=== PATIENT | female | born 1965 | race Caucasian/White ===

== ENCOUNTER 2016-06-29 13:07 | Emergency (ER) | payer OTHER ==
[~2016-06-29] VITALS: Ht 172.7 cm; Wt 95.0 kg
[~2016-06-29 13:07] MED LIST: BACT800T5 PO; CEPH500 PO; EC-N500T7 PO; HYDR-3533 PO; NAPR500 PO
[2016-06-29 13:13] VITALS: BP 110/81; PULSE 73; RESP 16; TEMP 97.8; O2SAT 95
[2016-06-29] MEDS ORDERED: NAPR500 PO (13:57)
[2016-06-29] MEDS ORDERED: BACT800T5 PO (13:57)
[2016-06-29] MEDS ORDERED: ZOFR4TAB PO (13:57)
[2016-06-29] MEDS ORDERED: FLUO1TAB3 PO (13:57)
[2016-06-29] MEDS ORDERED: LIDOCAINE 1%/EPINEPHrine 1:100,000 SOLN 20 ML VIAL INFIL ONE (14:00)
[2016-06-29] MEDS ORDERED: SODIUM CHLORIDE 0.9% FLUSH 5 ML FLUSH IVF PRN (14:00)
[2016-06-29] MEDS ORDERED: SODIUM CHLOR 0.9% 1000 ML INJ 1,000 ML IV SCH (14:00)
[2016-06-29] MEDS ORDERED: ONDANSETRON HCL 4 MG/2 ML VIAL IVP ONE (14:00)
--- NOTE | 2016-06-29 14:08 | PD ---
HPI Chief Complaint: Cold / Flu Symptoms Time Seen by Provider: 14:04 Travel History International Travel<30 days: No Contact w/Intl Traveler<30days: No Traveled to known affect area: No History of Present Illness HPI Patient is a 50-year-old female presenting with chief complaint of cough. She states since June 22 she's had what she feels an upper respiratory infection cough, body aches, and nasal congestion. She felt like she was improving but over the last several days she has had worsening dyspnea without wheezing. She reports severe fatigue that is worse with activity. She has bilateral lower anterior rib pain with cough but denies pain at rest, exertional pain or pain with deep inspiration. She denies abdominal pain but has had nausea without vomiting. She reports reduced oral intake over the last several days. She denies diarrhea or dysuria or constipation. She denies fever and chills. She states over the last several days she has developed skin lesions on her left jaw and right armpit. 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 One on the face has been draining spontaneously and has improvement of the last several days. She denies history of diabetes or immune compromise states. She is a former smoker. PFSH Past Medical History Arthritis: Yes Depression: Yes Cancer: No Cardiovascular Problems: No Diabetes: No Endocrine: No Gastrointestinal Disorders: Yes (REFLUX) Genitourinary: No Hepatitis: No Hiatal Hernia: No Hypertension: No Immune Disorder: No Medical other: No Musculoskeletal: Yes (ARTHRITIS, NECK AND BACK) Neurologic: No Psychiatric: No Reproductive: No Respiratory: No Immunizations Current: Yes Thyroid Disease: No ?: Not LMP: MENOPAUSAL Menopausal: Yes : 3 Para: 1 Miscarriage: 2 Past Surgical History Cholecystectomy: Yes Genitourinary Surgery: Yes (SRAVAN) Joint Replacement: No Other Surgery: Yes (LIPOMA REMOVED LEFT SHOULDER) Social History Alcohol Use: No (denies) Tobacco Use: No Substance Use: No Allergies-Medications (Allergen,Severity, Reaction): Coded Allergies: No Known Allergies (Verified , 06/29/16) Reported Meds & Prescriptions Reported Meds & Active Scripts Active Zofran Odt (Ondansetron Odt) 4 Mg Tab 4 Mg SL Q8HR PRN Proair Hfa 8.5 GM Inh (Albuterol Sulfate) 90 Mcg/Act Aer 2 Puff INH Q4-6H PRN 108 mcg/actuation Tessalon Perles (Benzonatate) 100 Mg Cap 100-200 Mg PO TID PRN Medrol Dosepak (Methylprednisolone) 4 Mg Dspk 4 Mg PO DIRECTED Per Pharmacist direction Clindamycin (Clindamycin HCl) 300 Mg Cap 300 Mg PO Q6H 10 Days Reported Fluoxetine (Fluoxetine HCl) 20 Mg Tab 20 Mg PO DAILY Zofran (Ondansetron HCl) 4 Mg Tab 4 Mg PO Q6HR PRN Naprosyn (Naproxen) 500 Mg Tab 500 Mg PO BID Bactrim DS (Sulfamethoxazole-Trimethoprim) 800-160 Mg Tab 1 Tab PO BID Review of Systems Except as stated in HPI: all other systems reviewed are Neg Physical Exam Narrative GENERAL: Well-developed and well-nourished adult female in no acute distress. SKIN: Multiple excoriations to the upper back and all 4 extremities. There is a 2.5 x 1.5 cm indurated red area on the left anterior draw it is not submandibular some central areas of opening and scabbing. Minimal warmth, no streaking. No induration. He can palpate this on the buccal side but this does not appear to involve the submental or submandibular spaces. There is also a 2 cm ovoid lesion on the right axilla that is fluctuant and erythematous without streaking. Warm and dry. Decreased turgor without tenting. HEAD: Normocephalic and atraumatic. EYES: PERRL bilaterally, 5mm. EOMI bilaterally. No injection or icterus present. No proptosis. Lids without edema or erythema. ENT: Bilateral ear canals are non-edematous/non-erythematous without otorrhea. Bilateral TMs have intact landmarks and without distortion, perforation, air- fluid level or erythema. Nasal mucosa erythematous and edematous without discharge, septum intact and midline. Buccal mucosa pink and moist. Oropharynx free of erythema, tonsillar hypertrophy, masses, swelling, asymmetry and exudates. Uvula midline and airway patent. NECK: Supple, no meningeal signs. Trachea midline, no JVD. No cervical or facial lymphadenopathy. CARDIOVASCULAR: Regular rate and rhythm without murmurs, rubs, clicks or gallops. Radial and posterior tibial pulses 2+ bilaterally. No pedal edema. RESPIRATORY: Coarse breath sounds diffusely without rales or rhonchi auscultated. No distress or use of accessory muscles. GASTROINTESTINAL: Non-tender, non-distended. Normal bowel sounds all 4 quadrants. No masses or organomegaly present. MUSCULOSKELETAL: No gait disturbances. Patient freely moving all four extremities spontaneously. Extremities without clubbing, cyanosis, or edema. No obvious deformities. NEUROLOGIC: CN II-XII grossly intact. Awake and alert. Motor grossly within normal limits. Normal speech. PSYCHIATRIC: Appropriate mood and affect; insight and judgment normal. Data Data Last Documented VS Vital Signs Date Time Temp Pulse Resp B/P Pulse Ox O2 Delivery O2 Flow Rate FiO2 06/29/16 16:01 70 18 108/68 98 Room Air 06/29/16 13:13 97.8 Orders Electrocardiogram (06/29/16 14:00) Complete Blood Count With Diff (06/29/16 14:00) Comprehensive Metabolic Panel (06/29/16 14:00) Influenzae A/B Antigen (06/29/16 14:00) Chest, Pa & Lat (06/29/16 14:00) Iv Access Insert/Monitor (06/29/16 14:00) Oximetry (06/29/16 14:00) Sodium Chloride 0.9% Flush (Ns Flush) (06/29/16 14:00) Lipase (06/29/16 14:00) Urinalysis - C+S If Indicated (06/29/16 14:00) Ondansetron Inj (Zofran Inj) (06/29/16 14:00) Sodium Chlor 0.9% 1000 Ml Inj (Ns 1000 M (06/29/16 14:00) B-Type Natriuretic Peptide (06/29/16 14:00) Prothrombin Time / Inr (Pt) (06/29/16 14:00) Act Partial Throm Time (Ptt) (06/29/16 14:00) Wound Culture And Gram Stain (06/29/16 14:00) Lidocai-Epi 1%-1:100,000 Inj (Xylocaine- (06/29/16 14:00) Albuterol-Ipratropium Neb (Duoneb Neb) (06/29/16 14:15) Lidocai-Epi 1%-1:100,000 Inj (Xylocaine- (06/29/16 14:10) Potassium Chloride (Kcl) (06/29/16 15:15) Troponin I (06/29/16 14:37) Labs Laboratory Tests Test 06/29/16 06/29/16 14:37 15:10 White Blood Count 7.5 TH/MM3 Red Blood Count 4.75 MIL/MM3 Hemoglobin 13.9 GM/DL Hematocrit 42.3 % Mean Corpuscular Volume 88.9 FL Mean Corpuscular Hemoglobin 29.2 PG Mean Corpuscular Hemoglobin 32.8 % Concent Red Cell Distribution Width 11.6 % Platelet Count 346 TH/MM3 Mean Platelet Volume 7.8 FL Neutrophils (%) (Auto) 56.6 % Lymphocytes (%) (Auto) 33.1 % Monocytes (%) (Auto) 6.8 % Eosinophils (%) (Auto) 0.9 % Basophils (%) (Auto) 2.6 % Neutrophils # (Auto) 4.2 TH/MM3 Lymphocytes # (Auto) 2.5 TH/MM3 Monocytes # (Auto) 0.5 TH/MM3 Eosinophils # (Auto) 0.1 TH/MM3 Basophils # (Auto) 0.2 TH/MM3 CBC Comment DIFF FINAL Differential Comment Prothrombin Time 11.5 SEC Prothromb Time International 1.0 RATIO Ratio Activated Partial 26.4 SEC Thromboplast Time Sodium Level 140 MEQ/L Potassium Level 3.4 MEQ/L Chloride Level 104 MEQ/L Carbon Dioxide Level 22.7 MEQ/L Anion Gap 13 MEQ/L Blood Urea Nitrogen 13 MG/DL Creatinine 1.10 MG/DL Estimat Glomerular Filtration 52 ML/MIN Rate Random Glucose 101 MG/DL Calcium Level 9.8 MG/DL Total Bilirubin 0.4 MG/DL Aspartate Amino Transf 18 U/L (AST/SGOT) Alanine Aminotransferase 18 U/L (ALT/SGPT) Alkaline Phosphatase 115 U/L Troponin I LESS THAN 0.02 NG/ML B-Type Natriuretic Peptide LESS THAN 2 PG/ML Total Protein 7.8 GM/DL Albumin 3.8 GM/DL Lipase 111 U/L Urine Collection Type CLEAN CATCH Urine Color YELLOW Urine Turbidity CLEAR Urine pH 6.0 Urine Specific [place] 1.020 Urine Protein NEG mg/dL Urine Glucose (UA) NEG mg/dL Urine Ketones NEG mg/dL Urine Occult Blood NEG Urine Nitrite NEG Urine Bilirubin NEG Urine Leukocyte Esterase NEG Urine WBC 0-2 /hpf Urine Squamous Epithelial 0-5 /hpf Cells Microscopic Urinalysis Comment CULT NOT INDICATED MDM Medical Decision Making Medical Screen Exam Complete: Yes Emergency Medical Condition: Yes Differential Diagnosis Viral syndrome versus bronchitis versus pneumonia versus abscess versus cellulitis ACS versus CHF versus dehydration versus electrolyte disturbance Narrative Course Patient is a 50-year-old female who is a former smoker presenting with worsening respiratory symptoms after some improvement. Total length of symptoms is one week. She reports shortness of breath and yellow sputum production along with nasal congestion and body aches. She is afebrile and nontoxic appearing. Does have some decrease in turgor and reports decreased oral intake and nausea without vomiting. She's had some lower bilateral anterior rib discomfort with coughing reports fatigue and MARIA. Of note she also has a left-sided central draining facial abscess does not involve the submental or submandibular space. She has a right axillary abscess. I drained the right axillary abscess per attached procedure narrative. We'll cover with antibiotics for this, was told patient only gets Bactrim from her PCP for minor cellulitis and to prevent infection by her and she had some left over which she has been using for 3 days without. We'll give the patient clindamycin given likely resistance pattern with chronic use and not finishing regiments. Ordered EKG, chest x-ray, doing nebs, labs: Including troponins and BMP. Patient does not have signs of CHF on exam began 1 L normal saline bolus for her volume depletion. Was given Zofran. EKG: Normal sinus rhythm with rate of 74. Normal intervals and axis. There is RSR in V1 which is present and previous ECG of 2015. There is diffuse T-wave flattening which is new, no ST depression or elevation. BNP undetectable troponin less 02. Creatinine 1.10 which is chronic. Potassium 3.3, replaced with 40 mEq orally. CBC unremarkable. UA and INR unremarkable. Chest x-ray shows no acute cardiopulmonary processes. Patient given clindamycin with a skin lesions, sent culture. Was given Zofran to help with the nausea prescription for Medrol Dosepak, albuterol and Tessalon Perles to help with the respiratory symptoms. Recommend follow-up with PCP tomorrow.See discharge paperwork for further instructions. The plan was discussed with the patient who acknowledged their understanding and agreement. Reinforced the follow-up with primary care is critically important. Patient instructed on emergent conditions that should prompt return to ED. Procedures Procedure Narrative I&D LOCATION: Right axilla SIZE: 2 cm ANESTHESIA: 1% lidocaine with epi PROCEDURE: The abscess was prepped with Betadine and sterilely draped. The abscess was infiltrated with 1 cc of above anesthetic. Incision was made with a #11 blade with length of 1 cm and depth of 6 mm. Expressed purulent and bloody material, approximately 3 mL. The wound was copiously irrigated and loculations were broken up. The wound was left open and covered with a sterile dressing. Packing was not done. The patient was advised to keep the dressing clean and dry. Patient tolerated the procedure well. Diagnosis Primary Impression: Acute bronchitis Qualified Code: J20.9 - Acute bronchitis, unspecified organism Additional Impression: Abscess Patient Instructions: Abscess (ED), Acute Bronchitis (ED), General Instructions Additional Instructions: Take medication as prescribed OTC Mucinex, cough suppressants, and decongestants as needed OTC Tylenol or Ibuprofen for fever and discomfort Drink lots of fluid to help clear mucous/drainage and stay hydrated Keep area clean, dry, and covered with dressing/bandage Apply warm compresses daily to help with drainage Warm water Epsom salt soaks will help promote drainage Wound will continue to drain which is normal Take Tylenol or ibuprofen for pain Follow-up with PCP in 1-2 days, call laboratory for wound culture results Return to the ED for any acute worsening of symptoms including worsening swelling, spreading redness, fever, chills, nausea and vomiting Med/Other Pt SpecificInfo: Prescription(s) given Scripts Ondansetron Odt (Zofran Odt)4 Mg Tab4 Mg SL Q8HR PRN (Nausea/Vomiting) #12 TAB Prov:Rick Peace MD 06/29/16 Albuterol 8.5 GM Inh (Proair Hfa 8.5 GM Inh)90 Mcg/Act Aer2 Puff INH Q4-6H PRN ( SHORTNESS OF BREATH) #1 INHALER 108 mcg/actuation Prov:Rick Peace MD 06/29/16 Benzonatate (Tessalon Perles)100 Mg [id number] Mg PO TID PRN (COUGH) #20 CAP Prov:Rick Peace MD 06/29/16 Methylprednisolone Dosepak (Medrol Dosepak)4 Mg Dspk4 Mg PO DIRECTED #1 DSPK Per Pharmacist direction Prov:Rick Peace MD 06/29/16 Clindamycin 300 Mg [id number] Mg PO Q6H 10 Days Prov:Rick Peace MD 06/29/16 Disposition: 01 DISCHARGE HOME Condition: Stable Juan Carlos Rose III Jun 29, 2016 14:08
[2016-06-29] MEDS ORDERED: LIDOCAINE 1%/EPINEPHrine 1:100,000 SOLN 30 ML VIAL ONE (14:10)
[2016-06-29] MEDS: RESP: ALBUTEROL 2.5 MG/IPRATROPIUM 0.5 MG NEB (SCH) INH (14:25)
[2016-06-29 14:39] VITALS: O2SAT 98
[2016-06-29 14:49] LABS: AUTOMATED NEUTROPHIL # 4.2 TH/MM3 (1.8-7.7); BASOPHIL # 0.2 TH/MM3 (0-0.2); BASOPHIL % 2.6 % (0.0-2.0); EOSINOPHIL # 0.1 TH/MM3 (0-0.4); EOSINOPHIL % 0.9 % (0.0-4.0); HEMATOCRIT 42.3 % (35.0-46.0); HEMO FLAGS DIFF FINAL; LYMPH % 33.1 % (9.0-44.0); LYMPHOCYTE # 2.5 TH/MM3 (1.0-4.8); MEAN CELL VOLUME 88.9 FL (80.0-100.0); MEAN CORPUSCULAR HEMOGLOBIN 29.2 PG (27.0-34.0); MEAN CORPUSCULAR HGB CONC 32.8 % (32.0-36.0); MONO % 6.8 % (0.0-8.0); NEUT % 56.6 % (16.0-70.0); PLATELET COUNT 346 TH/MM3 (150-450); RED BLOOD COUNT 4.75 MIL/MM3 (4.00-5.30); RED CELL DISTRIBUTION WIDTH 11.6 % (11.6-17.2); WHITE BLOOD COUNT 7.5 TH/MM3 (4.0-11.0)
[2016-06-29 14:54] LABS: CHLORIDE 104 MEQ/L (98-107); POTASSIUM 3.4 MEQ/L (3.5-5.1); SODIUM (NA) 140 MEQ/L (136-145)
[2016-06-29 14:58] LABS: ANION GAP 13 MEQ/L (5-15); APTT (PATIENT) 26.4 SEC (24.3-30.1); BICARBONATE 22.7 MEQ/L (21.0-32.0); BLOOD UREA NITROGEN 13 MG/DL (7-18); PROTHROMBIN TIME - PATIENT 11.5 SEC (9.8-11.6)
[2016-06-29 15:00] LABS: ALT (GPT) 18 U/L (10-53)
[2016-06-29 15:01] LABS: AST (GOT) 18 U/L (15-37); GLOMERULAR FILTRATION RATE 52 ML/MIN (>89)
[2016-06-29 15:02] LABS: TOTAL BILIRUBIN ADULT 0.4 MG/DL (0.2-1.0)
[2016-06-29 15:03] LABS: ALKALINE PHOSPHATASE 115 U/L (45-117)
--- NOTE | 2016-06-29 15:08 | RADHPO ---
EXAM DATE/TIME: 06/29/2016 14:12 [facility] COMPARISON: No previous studies available for comparison. INDICATIONS : Cough, short of breath MEDICAL HISTORY : None. SURGICAL HISTORY : None. ENCOUNTER: Initial ACUITY: 1 week PAIN SCORE: 0/10 LOCATION: Bilateral chest FINDINGS: PA and lateral views of the chest demonstrate the lungs to be symmetrically aerated without evidence of mass, infiltrate or effusion. The cardiomediastinal contours are unremarkable. Osseous structure s are intact. CONCLUSION: No acute disease. Maximilian Parra MD FACR on June 29, 2016 at 15:06 Board Certified Radiologist. This report was verified electronically.
[2016-06-29] MEDS ORDERED: POTASSIUM CHLORIDE 20 MEQ CONTROLLED RELEASE TAB PO ONE (15:15)
[2016-06-29 15:30] LABS: BLOOD, URINE NEG (NEG); GLUCOSE,URINE NEG (NEG); KETONE, URINE NEG (NEG); NITRITE,URINE NEG (NEG)
[2016-06-29 15:38] LABS: METHOD OF COLLECTION CLEAN CATCH; URINE COLOR YELLOW (YELLW/STRAW); WBC, URINE 0-2 /hpf (0-5)
[2016-06-29 15:39] LABS: COMMENT (UR) CULT NOT INDICATED; CULTURE IF INDICATED CULT NOT INDICATED; SQUAMOUS EPITHELIAL CELL URINE 0-5 /hpf (0-5)
[2016-06-29 16:01] VITALS: BP 108/68; PULSE 70; RESP 18; O2SAT 98
[2016-06-29] MEDS ORDERED: CLIN1CAP6 PO (16:18)
[2016-06-29] MEDS ORDERED: MEDR4PAK PO (16:18)
[2016-06-29] MEDS ORDERED: ALBUAER3 INH (16:18)
[2016-06-29] MEDS ORDERED: BENZ100 PO (16:18)
[2016-06-29] MEDS ORDERED: ZOFR4TAB3 SL (16:19)
--- NOTE | 2016-06-29 17:34 | EKG ---
Date Performed: 06/29/2016 Time Performed: 14:26:38 PTAGE: 50 years EKG: Sinus rhythm rSr'(V1) - probable normal variant Anterolateral T wave changes are nonspecific Borderline ECG PREVIOUS TRACING : 09/07/2014 11.16 Compared to previous tracing, nonspecific T wave changes ar e now evident. DOCTOR: Ian Thorpe Interpretating Date/Time 06/29/2016 17:32:59
== END 2016-06-29 16:47 | disposition home or self-care (01) ==
LOC: PHEFT 13:07
DX: J20.9 Acute bronchitis, unspecified (principal); L02.01 Cutaneous abscess of face; L02.411 Cutaneous abscess of right axilla; B96.89 Other specified bacterial agents as the cause of diseases classified elsewhere
CPT/HCPCS: 10060; 71020; 80053; 81001; 83690; 83880; 84484; 85025; 85610; 85730; 86403; 87070; 87077; 87185; 87186; 87804; 93005; 94640; 94664; 96361; 96374; 99284; J2405; J7030; 87205

== ENCOUNTER → 2016-08-15 | Outpatient (CLI) | payer OTHER ==
[~2016-08-15] MED LIST changes: +ALBUAER3 INH; +BENZ100 PO; +CEPH-460 PO; -CEPH500 PO; +CLIN1CAP6 PO; -EC-N500T7 PO; +FLUO1TAB3 PO; -HYDR-3533 PO; +MEDR4PAK PO; +MUPI2%T TOPICAL; +ZOFR4TAB PO; +ZOFR4TAB3 SL
[2016-08-15 13:15] LABS: HEMATOCRIT 39.6 % (35.0-46.0); MEAN CELL VOLUME 91.3 FL (80.0-100.0); MEAN CORPUSCULAR HEMOGLOBIN 30.5 PG (27.0-34.0); MEAN CORPUSCULAR HGB CONC 33.4 % (32.0-36.0); PLATELET COUNT 293 TH/MM3 (150-450); RED BLOOD COUNT 4.33 MIL/MM3 (4.00-5.30); RED CELL DISTRIBUTION WIDTH 12.9 % (11.6-17.2); REVIEW FLAG FINAL; WHITE BLOOD COUNT 4.6 TH/MM3 (4.0-11.0)
[2016-08-15 13:45] LABS: ANION GAP 9 MEQ/L (5-15); AST (GOT) 24 U/L (15-37); BICARBONATE 25.9 MEQ/L (21.0-32.0); BLOOD UREA NITROGEN 7 MG/DL (7-18); CHLORIDE 106 MEQ/L (98-107); GLOMERULAR FILTRATION RATE 63 ML/MIN (>89); GLUCOSE,FASTING 95 MG/DL (74-99); POTASSIUM 3.6 MEQ/L (3.5-5.1); SODIUM (NA) 141 MEQ/L (136-145)
[2016-08-15 13:57] LABS: ALKALINE PHOSPHATASE 97 U/L (45-117); ALT (GPT) 21 U/L (10-53); HDL CHOLESTEROL 62.2 MG/DL (40.0-60.0); LDL CHOLESTEROL 175 MG/DL (0-99); TOTAL BILIRUBIN ADULT 0.3 MG/DL (0.2-1.0)
== END ==
LOC: PLAB 07:41
PROVIDERS: ATTEND Family Medicine
DX: F41.9 Anxiety disorder, unspecified (principal); M50.30 Other cervical disc degeneration, unspecified cervical region; N95.1 Menopausal and female climacteric states; E78.5 Hyperlipidemia, unspecified
CPT/HCPCS: 80053; 80061; 84443; 85027

== ENCOUNTER 2016-12-09 10:26 | Emergency (ER) | payer OTHER ==
[~2016-12-09] VITALS: Ht 172.7 cm; Wt 92.7 kg
[~2016-12-09 10:26] MED LIST changes: -CEPH-460 PO; -MUPI2%T TOPICAL
[2016-12-09 10:31] VITALS: BP 111/79; PULSE 73; RESP 16; TEMP 98.5; O2SAT 98
[2016-12-09] MEDS ORDERED: CEPH-460 PO (10:50)
[2016-12-09] MEDS ORDERED: MUPI2%T TOPICAL (10:50)
--- NOTE | 2016-12-09 10:50 | PD ---
HPI Chief Complaint: Allergic/Adverse Reaction Time Seen by Provider: 10:36 Travel History International Travel<30 days: No Contact w/Intl Traveler<30days: No Traveled to known affect area: No History of Present Illness HPI This 51-year-old female is complaining of some swelling of her lower lip. She was in the sun a few days ago. The swelling has progressed even out of a sound that she started having a little bit of swelling of the upper left. Primarily involves the left side. She is not on any Marc inhibitors. She is not aware of fever or chills. She does have occasional pain in the left elbow. She says sometimes when it is like she has trouble extending it and some tenderness extending to flex is no history of trauma. There is been no fever or chills. PFSH Past Medical History Hx Anticoagulant Therapy: No Arthritis: Yes Depression: Yes Cancer: No Cardiovascular Problems: No Diabetes: No Endocrine: No Gastrointestinal Disorders: Yes (REFLUX) Genitourinary: No Hepatitis: No Hiatal Hernia: No Hypertension: No Immune Disorder: No Musculoskeletal: Yes (ARTHRITIS, NECK AND BACK) Neurologic: No Psychiatric: No Reproductive: No Respiratory: No Immunizations Current: Yes Thyroid Disease: No ?: Not Menopausal: Yes : 3 Para: 1 Miscarriage: 2 Past Surgical History Cholecystectomy: Yes Genitourinary Surgery: Yes (SRAVAN) Joint Replacement: No Other Surgery: Yes (LIPOMA REMOVED LEFT SHOULDER) Social History Alcohol Use: No (denies) Tobacco Use: No Substance Use: No Allergies-Medications (Allergen,Severity, Reaction): Coded Allergies: No Known Allergies (Verified , 12/09/16) Reported Meds & Prescriptions Reported Meds & Active Scripts Active Zofran Odt (Ondansetron Odt) 4 Mg Tab 4 Mg SL Q8HR PRN Proair Hfa 8.5 GM Inh (Albuterol Sulfate) 90 Mcg/Act Aer 2 Puff INH Q4-6H PRN 108 mcg/actuation Tessalon Perles (Benzonatate) 100 Mg Cap 100-200 Mg PO TID PRN Medrol Dosepak (Methylprednisolone) 4 Mg Dspk 4 Mg PO DIRECTED Per Pharmacist direction Clindamycin (Clindamycin HCl) 300 Mg Cap 300 Mg PO Q6H 10 Days Reported Fluoxetine (Fluoxetine HCl) 20 Mg Tab 20 Mg PO DAILY Zofran (Ondansetron HCl) 4 Mg Tab 4 Mg PO Q6HR PRN Naprosyn (Naproxen) 500 Mg Tab 500 Mg PO BID Bactrim DS (Sulfamethoxazole-Trimethoprim) 800-160 Mg Tab 1 Tab PO BID Review of Systems General / Constitutional: No: Fever, Chills Eyes: No: Diploplia HENT: No: Headaches Cardiovascular: No: Chest Pain or Discomfort Respiratory: No: Cough, Shortness of Breath Physical Exam Narrative GENERAL: Well-developed female SKIN: Focused skin assessment warm/dry. The lower lip there are some sores which have been positive crusting. There is some early lesions on the upper lower. HEAD: Atraumatic. Normocephalic. EYES: Pupils equal and round. No scleral icterus. No injection or drainage. ENT: No nasal bleeding or discharge. Mucous membranes pink and moist. NECK: Trachea midline. No JVD. MUSCULOSKELETAL: No obvious deformities. No clubbing. No cyanosis. No edema. Left elbow does not show any erythema. There is good range of motion. NEUROLOGICAL: Awake and alert. No obvious cranial nerve deficits. Motor grossly within normal limits. Normal speech. PSYCHIATRIC: Appropriate mood and affect; insight and judgment normal. Data Data Last Documented VS Vital Signs Date Time Temp Pulse Resp B/P Pulse Ox O2 Delivery O2 Flow Rate FiO2 12/09/16 10:31 98.5 73 16 111/79 98 MDM Medical Decision Making Medical Screen Exam Complete: Yes Emergency Medical Condition: Yes Medical Record Reviewed: Yes Differential Diagnosis Differential includes allergic reaction, and diagonal Narrative Course I believe the patient is developing impetigo at the site of a blister. She'll be placed on Bactroban and Keflex. Diagnosis Primary Impression: Impetigo Scripts Mupirocin Topical (Bactroban Topical)22 Gm Cream1 Applic TOPICAL BID 7 Days Ref 0 Prov:Rick Peace MD 12/09/16 Cephalexin (Keflex)500 Mg [id number] Mg PO Q6H 7 Days Ref 0 Prov:Rick Peace MD 12/09/16 Disposition: 01 DISCHARGE HOME Condition: Stable Rick Peace MD Dec 09, 2016 10:50
== END 2016-12-09 11:08 | disposition home or self-care (01) ==
LOC: PHED 10:26
DX: L01.00 Impetigo, unspecified (principal)
CPT/HCPCS: 99284

== ENCOUNTER 2017-03-14 12:53 | Emergency (ER) | payer OTHER ==
[~2017-03-14] VITALS: Ht 170.2 cm; Wt 92.6 kg
[~2017-03-14 12:53] MED LIST changes: -ALBUAER3 INH; -BACT800T5 PO; -BENZ100 PO; +CEPH-460 PO; -CLIN1CAP6 PO; -MEDR4PAK PO; +MUPI2%T TOPICAL; -NAPR500 PO; -ZOFR4TAB PO; -ZOFR4TAB3 SL
[2017-03-14 12:56] VITALS: BP 109/65; PULSE 70; RESP 20; TEMP 97.8; O2SAT 97
[2017-03-14] MEDS ORDERED: AUGM875T3 PO (13:21)
[2017-03-14] MEDS ORDERED: CIPR0.3S RIGHT EAR (13:21)
--- NOTE | 2017-03-14 13:22 | PD ---
HPI Chief Complaint: ENT Complaint Time Seen by Provider: 13:07 Travel History International Travel<30 days: No Contact w/Intl Traveler<30days: No Traveled to known affect area: No History of Present Illness HPI 51-year-old female presents emergency department for evaluation of sinus pain and pressure and right ear pain 2 weeks. She denies fever or chills. She reports somewhat symptoms in the past for sinusitis and ear infections. Over- the-counter cold and flu medications not relieving symptoms. Symptom severity is mild. PFSH Past Medical History Hx Anticoagulant Therapy: No Arthritis: Yes Anxiety: Yes Depression: Yes Cancer: No Cardiovascular Problems: No Diabetes: No Endocrine: No Gastrointestinal Disorders: Yes (REFLUX) Genitourinary: No Hepatitis: No Hiatal Hernia: No Hypertension: No Immune Disorder: No Medical other: No Musculoskeletal: Yes (ARTHRITIS, NECK AND BACK) Neurologic: No Psychiatric: No Reproductive: No Respiratory: No Immunizations Current: Yes Thyroid Disease: No Tetanus Vaccination: < 5 Years ?: Not Menopausal: Yes : 3 Para: 1 Miscarriage: 2 Past Surgical History Cholecystectomy: Yes Genitourinary Surgery: Yes (SRAVAN) Joint Replacement: No Other Surgery: Yes (LIPOMA REMOVED LEFT SHOULDER) Social History Alcohol Use: No (denies) Tobacco Use: No (quit 30 yrs ago, smoked cigs 3 a day) Substance Use: No Allergies-Medications (Allergen,Severity, Reaction): Coded Allergies: No Known Allergies (Verified , 12/09/16) Reported Meds & Prescriptions Reported Meds & Active Scripts Active Ciprodex Otic Drops (Ciprofloxacin-Dexamethasone Otic Drops) 0.3-0.1% Susp 4 Drop RIGHT EAR BID 7 Days Augmentin (Amoxicillin-Clavulanate) 875-125 Mg Tab 1 Tab PO BID 10 Days Bactroban Topical (Mupirocin) 22 Gm Cream 1 Applic TOPICAL BID 7 Days Keflex (Cephalexin) 500 Mg Capsule 500 Mg PO Q6H 7 Days Reported Fluoxetine (Fluoxetine HCl) 20 Mg Tab 20 Mg PO DAILY Review of Systems Except as stated in HPI: all other systems reviewed are Neg HENT: Positive: Congestion, Earache Physical Exam Narrative GENERAL: Well-nourished, well-developed patient. SKIN: Focused skin assessment warm/dry. HEAD: Normocephalic. + Tenderness frontal maxillary sinuses EYES: No scleral icterus. No injection or drainage. \ EAR: Right TM erythema with mild canal swelling. No TM perforation. No drainage in the canal. No mastoid tenderness or swelling. NECK: Supple, trachea midline. No JVD or lymphadenopathy. No meningismus CARDIOVASCULAR: Regular rate and rhythm without murmurs, gallops, or rubs. RESPIRATORY: Breath sounds equal bilaterally. No accessory muscle use. GASTROINTESTINAL: Abdomen soft, non-tender, nondistended. Data Data Last Documented VS [facility] Medical Decision Making Medical Screen Exam Complete: Yes Emergency Medical Condition: Yes Differential Diagnosis Otitis externa, otitis media, sinusitis, URI Narrative Course 51-year-old female presents emergency department for evaluation of sinus pain and pressure and right ear pain 2 weeks. On exam patient has frontal and maxillary sinus pain and tenderness. She has swelling in the right canal. No mastoid tenderness or swelling. TM erythema. No perforation. Patient will be treated for otitis externa and sinusitis. Diagnosis Primary Impression: Sinusitis Qualified Codes: J01.90 - Acute sinusitis, unspecified Additional Impression: Otitis externa Qualified Codes: H60.90 - Unspecified otitis externa, unspecified ear Referrals: Primary Care Physician Scripts Ciprofloxacin-Dexamethasone Otic Drops (Ciprodex Otic Drops) 0.3-0.1% Susp 4 DROP RIGHT EAR BID for Infection for 7 Days, #1 BOTTLE 0 Refills Prov: Victorina Ortega 03/14/17 Amoxicillin-Clavulanate (Augmentin) 875-125 Mg Tab 1 TAB PO BID for Infection for 10 Days, #20 TAB 0 Refills Prov: Victorina Ortega 03/14/17 Disposition: 01 DISCHARGE HOME Condition: Stable Victorina Ortega Mar 14, 2017 13:21
== END 2017-03-14 13:31 | disposition home or self-care (01) ==
LOC: PHEFT 12:53
DX: J01.90 Acute sinusitis, unspecified (principal); H60.91 Unspecified otitis externa, right ear; Z87.891 Personal history of nicotine dependence
CPT/HCPCS: 99284

== ENCOUNTER → 2017-07-12 | Emergency (ER) | payer OTHER ==
[~2017-07-12] VITALS: Ht 172.7 cm; Wt 93.1 kg
[~2017-07-12] MED LIST changes: +ACETAMINOPHEN/HYDROcodone 325 MG/5 MG TAB ONE; +AUGM875T3 PO; +BACITRACIN TOP OINT 15 GM TUBE ONE; +BUPIVACAINE HCL PF 0.5% 30 ML VIAL ONE; +CHLORHEXIDINE GLUCONATE 2 % 1 PACK (2 CLOTHS) TOPICAL PRN; +CIPR0.3S RIGHT EAR; +DEXAMETHASONE SOD PHOS 4 MG/ML VIAL IV ONE; +KETOROLAC TROMETHAMINE 30 MG/ML (IVP) VIAL IV PUSH ONE; +LACTATED RINGER'S 1000 ML IV PRN; +LIDOCAINE HCL 1% PF 5 ML SYRINGE OTHER ONE; +LIDOCAINE HCL 2% 50 ML VIAL ONE; +MEPERIDINE HCL 25 MG/ML VIAL ONE; +METOPROLOL TARTRATE 25 MG TAB PO PRN; +MIDAZOLAM HCL 2 MG/2 ML VIAL ONE; +NEOMYCIN/POLYMYXIN 1 ML G.U. IRRIGANT ONE; +ONDANSETRON HCL 4 MG/2 ML VIAL IV PUSH ONE; +POVIDONE IODINE 5% (ANTISEPSIS KIT) 4 APPLICATIONS EACH NARE PRN; +PROPOFOL 200 MG/20 ML AMP IV ONE; +SODIUM CHLORID 0.9% 500 ML IV PRN; +SODIUM CHLORIDE 0.9% FLUSH 10 ML FLUSH IV FLUSH PRN; +TETANUS/DIPHTHERIA TOXOID ADULT 0.5 ML VIAL IM ONE; +ceFAZolin 2 GM PREMIX 50 ML ONE
[2017-07-12 14:01] VITALS: BP 134/65; PULSE 66; RESP 16; TEMP 98.3; O2SAT 96
--- NOTE | 2017-07-12 15:22 | PD ---
HPI Chief Complaint: Laceration/Skin Injury Time Seen by Provider: 14:34 Travel History International Travel<30 days: No Contact w/Intl Traveler<30days: No Traveled to known affect area: No History of Present Illness HPI 51 old female here with laceration to her right fifth digit. Injury occurred prior to arrival. She was slicing vegetables on a mandolin vegetable slicer. She is unable to fully extend the distal phalanx. The distal phalanx is drooping. The laceration is over the DIP joint. She reports normal sensation. Pain at the site of the laceration. Aggravated by palpation and relieved with rest. PFSH Past Medical History Hx Anticoagulant Therapy: No Arthritis: Yes Anxiety: Yes Depression: Yes Cancer: No Cardiovascular Problems: No Diabetes: No Endocrine: No Gastrointestinal Disorders: Yes (REFLUX) Genitourinary: No Hepatitis: No Hiatal Hernia: No Hypertension: No Immune Disorder: No Medical other: No Musculoskeletal: Yes (ARTHRITIS, NECK AND BACK) Neurologic: No Psychiatric: No Reproductive: No Respiratory: No Immunizations Current: Yes Thyroid Disease: No Tetanus Vaccination: > 5 Years ?: Not Menopausal: Yes : 3 Para: 1 Miscarriage: 2 Past Surgical History Cholecystectomy: Yes Genitourinary Surgery: Yes (SRAVAN) Joint Replacement: No Other Surgery: Yes (LIPOMA REMOVED LEFT SHOULDER) Social History Alcohol Use: No (denies) Tobacco Use: No (quit 30 yrs ago, smoked cigs 3 a day) Substance Use: No Allergies-Medications (Allergen,Severity, Reaction): Coded Allergies: No Known Allergies (Verified Adverse Reaction, Unknown, 07/12/17) Reported Meds & Prescriptions Reported Meds & Active Scripts Active Reported Fluoxetine (Fluoxetine HCl) 20 Mg Tab 20 Mg PO DAILY Review of Systems Except as stated in HPI: all other systems reviewed are Neg Physical Exam Narrative GENERAL: Alert and well-appearing female. SKIN: Warm and dry. 1 cm U-shaped laceration over the right fifth DIP joint dorsal aspect. HEAD: Normocephalic. EYES: No injection or drainage. NECK: Supple, trachea midline. CARDIOVASCULAR: Regular rate and rhythm without murmurs, gallops, or rubs. RESPIRATORY: Breath sounds equal bilaterally. No accessory muscle use. GASTROINTESTINAL: Abdomen soft, non-tender, nondistended. MUSCULOSKELETAL: No cyanosis. Right hand: 1 cm U-shaped laceration over the right fifth DIP joint dorsal aspect. The distal phalanx is drooping and patient is unable to fully extend. Tendon laceration is not visualized. No foreign body. Normal sensation. Brisk cap refill. Data Data Last Documented VS Vital Signs Date Time Temp Pulse Resp B/P (MAP) Pulse Ox O2 Delivery O2 Flow Rate FiO2 07/12/17 14:01 98.3 66 16 134/65 (88) 96 Orders Orders Basic Metabolic Panel (Bmp) (07/12/17 15:30) Complete Blood Count With Diff (07/12/17 15:30) Prothrombin Time / Inr (Pt) (07/12/17 15:30) Act Partial Throm Time (Ptt) (07/12/17 15:30) Iv Access Insert/Monitor (07/12/17 15:30) Sodium Chloride 0.9% Flush (Ns Flush) (07/12/17 15:30) Electrocardiogram (07/12/17 15:30) Finger ([id number]) (07/12/17 ) Tetanus/Diphtheria Tox Adult (Tetanus/Di (07/12/17 15:45) Bupivacaine Pf 0.5% Inj (Marcaine Pf 0.5 (07/12/17 16:13) Bacitracin Oint (Baciguent Oint) (07/12/17 16:13) Lidocaine 2% Inj (Xylocaine 2% Inj) (07/12/17 16:13) Neomycin-Polymyxin G.U. Irr (Neosporin G (07/12/17 16:13) Labs Laboratory Tests Test 07/12/17 15:48 White Blood Count 7.3 TH/MM3 Red Blood Count 4.79 MIL/MM3 Hemoglobin 14.0 GM/DL Hematocrit 42.9 % Mean Corpuscular Volume 89.5 FL Mean Corpuscular Hemoglobin 29.3 PG Mean Corpuscular Hemoglobin Concent 32.7 % Red Cell Distribution Width 11.9 % Platelet Count 337 TH/MM3 Mean Platelet Volume 7.3 FL Neutrophils (%) (Auto) 60.3 % Lymphocytes (%) (Auto) 32.0 % Monocytes (%) (Auto) 5.2 % Eosinophils (%) (Auto) 1.1 % Basophils (%) (Auto) 1.4 % Neutrophils # (Auto) 4.4 TH/MM3 Lymphocytes # (Auto) 2.3 TH/MM3 Monocytes # (Auto) 0.4 TH/MM3 Eosinophils # (Auto) 0.1 TH/MM3 Basophils # (Auto) 0.1 TH/MM3 CBC Comment DIFF FINAL Differential Comment Prothrombin Time 10.4 SEC Prothromb Time International Ratio 1.0 RATIO Activated Partial Thromboplast Time 25.3 SEC Blood Urea Nitrogen 12 MG/DL Creatinine 0.87 MG/DL Random Glucose 89 MG/DL Calcium Level 9.4 MG/DL Sodium Level 138 MEQ/L Potassium Level 3.8 MEQ/L Chloride Level 107 MEQ/L Carbon Dioxide Level 23.3 MEQ/L Anion Gap 8 MEQ/L Estimat Glomerular Filtration Rate 68 ML/MIN MDM Medical Decision Making Medical Screen Exam Complete: Yes Emergency Medical Condition: Yes Differential Diagnosis Extensor tendon laceration, finger laceration, ligamental injury Narrative Course 31-year-old female here with laceration to the right fifth digit over the PIP joint. She is unable to fully extend the finger. Extensor tendon laceration is suspected. The case was discussed with on-call hand surgeon Dr. VENTURA who will take the patient to the OR at 4:30 today. IV access established. Tetanus immunization updated. X-ray, EKG, CBC, chemistry ordered and pending Diagnosis Primary Impression: Extensor tendon laceration, finger, open wound Qualified Codes: S66.529A - Laceration of intrinsic muscle, fascia and tendon of unspecified finger at wrist and hand level, initial encounter; S61.209A - Unspecified open wound of unspecified finger without damage to nail, initial encounter Victorina Ortega Jul 12, 2017 15:22
[2017-07-12 15:52] LABS: AUTOMATED NEUTROPHIL # 4.4 TH/MM3 (1.8-7.7); BASOPHIL # 0.1 TH/MM3 (0-0.2); BASOPHIL % 1.4 % (0.0-2.0); EOSINOPHIL # 0.1 TH/MM3 (0-0.4); EOSINOPHIL % 1.1 % (0.0-4.0); HEMATOCRIT 42.9 % (35.0-46.0); LYMPHOCYTE # 2.3 TH/MM3 (1.0-4.8); MEAN CELL VOLUME 89.5 FL (80.0-100.0); MEAN CORPUSCULAR HEMOGLOBIN 29.3 PG (27.0-34.0); MEAN CORPUSCULAR HGB CONC 32.7 % (32.0-36.0); MEAN PLATELET VOLUME 7.3 FL (7.0-11.0); MONO % 5.2 % (0.0-8.0); MONOCYTE # 0.4 TH/MM3 (0-0.9); NEUT % 60.3 % (16.0-70.0); PLATELET COUNT 337 TH/MM3 (150-450); RED BLOOD COUNT 4.79 MIL/MM3 (4.00-5.30); RED CELL DISTRIBUTION WIDTH 11.9 % (11.6-17.2); WHITE BLOOD COUNT 7.3 TH/MM3 (4.0-11.0)
[2017-07-12 16:03] LABS: CALCIUM 9.4 MG/DL (8.5-10.1)
[2017-07-12 16:04] LABS: BICARBONATE 23.3 MEQ/L (21.0-32.0)
[2017-07-12 16:06] LABS: PROTHROMBIN TIME - PATIENT 10.4 SEC (9.8-11.6)
[2017-07-12 16:07] LABS: CREATININE 0.87 MG/DL (0.50-1.00)
--- NOTE | 2017-07-12 16:07 | RADRPT ---
EXAM DATE/TIME: 07/12/2017 15:50 [facility] COMPARISON: No previous studies available for comparison. INDICATIONS : Laceration to right 5th finger with knife. unable to straighten finger MEDICAL HISTORY : None. SURGICAL HISTORY : None. ENCOUNTER: Initial ACUITY: 1 day PAIN SCORE: 8/10 LOCATION: Right 5th finger FINDINGS: Examination of the fifth digit of the right hand demonstrates no evidence of fracture or dislocation. Persistent flexion DIP joint. Soft tissue laceration. No radiopaque foreign bodies are seen. CONCLUSION: Soft tissue laceration and persistent flexion DIP joint likely ligamentous injury. Bryan Cohen MD on July 12, 2017 at 16:04 Board Certified Radiologist. This report was verified electronically.
--- NOTE | 2017-07-12 18:31 | PD.OP ---
Operative Report Preoperative Diagnosis: (1) extensor tendon laceration right little finger zone I with open wound Postoperative Diagnosis: (1) extensor tendon laceration right little finger zone I with open wound Procedure: exploration, wash distal interphalangeal joint and repair of extensor tendon zone I right little finger Anesthesia: general Surgeon: Gilbert Her Gasket Maker(s): eleanor Operation and Findings: open wound over DIP joint with flap of skin with a segment of extensor tendon exposed DIP Joint complete laceration of the extensor tendon over the DIP joint right little finger Giblert Her MD Jul 12, 2017 18:31
[2017-07-12 18:35] VITALS: PULSE 77
--- NOTE | 2017-07-12 19:16 | MB ---
cc: FLORENTIN VENTURA MD DATE OF CONSULTATION 07/12/2017 REASON FOR CONSULTATION Right little finger laceration. HISTORY OF THE PRESENT ILLNESS The patient is 51-year-old right-hand dominant female who presented to the ED with complaints of laceration to the right little finger. The patient states she was slicing vegetables on a mandolin vegetable slicer and accidentally lacerated the right little finger. She complains of laceration over the dorsal aspect of the right little finger with deformity of the distal joint of the right little finger. The patient also complains of inability to extend the distal joint of the right little finger. She also complains of pain over the region and bleeding from the region. PAST MEDICAL AND SURGICAL HISTORY Are noted and not significant. PHYSICAL EXAMINATION GENERAL: The patient is alert, oriented x3. EXTREMITIES: Examination of the right hand / little finger reveals ulnar based flap of skin elevated from the dorsal aspect of the DIP joint with drooping of the distal interphalangeal joint of about 70 degrees. The patient has no active extension of the DIP joint. The distal interphalangeal joint appears to be exposed. She has intact circulation distally. She has intact distal sensation. She has full flexion and extension of the PIP joint. The PIP joint appears to be in hyperextension posturing. No other injuries noted. IMAGING X-rays of the right hand shows flexion deformity of the distal interphalangeal joint right little finger. ASSESSMENT A 51-year-old female with open extensor tendon laceration right little finger with exposed distal interphalangeal joint. PLAN The plan will be to take the patient emergently for exploration, wash and repair of extensor tendon. The patient was explained the risks and benefits of the procedure. The patient was also informed about the possible need of pinning the DIP joint. We will keep the patient and we will take her to surgery. Florentin Ventura MD SE/BRITTANY /6:36 PM /7:05 PM
[2017-07-12 19:50] VITALS: BP 118/73; PULSE 73; RESP 16; TEMP 97; O2SAT 94
--- NOTE | 2017-07-13 19:40 | EKG ---
Date Performed: 07/12/2017 Time Performed: 16:00:58 PTAGE: 51 years EKG: Sinus rhythm NORMAL ECG PREVIOUS TRACING : 06/29/2016 14.26 Since previous tracing, no significant change noted DOCTOR: Sadia Kaufman Interpretating Date/Time 07/13/2017 19:38:48
--- NOTE | 2017-07-13 23:23 | MP ---
cc: FLORENTIN VENTURA MD DATE OF SURGERY: 07/12/2017 PREOPERATIVE DIAGNOSIS: Open extensor tendon laceration zone one right little finger. POSTOPERATIVE DIAGNOSIS Open extensor tendon laceration with exposed distal interphalangeal joint, zone one, right little finger. PROCEDURE Exploration, wash, distal interphalangeal joint and repair extensor tendon, zone one, right little finger. SURGEON Dr. Ventura. ANESTHESIA General ESTIMATED BLOOD LOSS Minimal. TOURNIQUET TIME 5 minutes at 250 mmHg. IMPLANTS: 0.035 K-wire x1. DISPOSITION: To PACU stable. INDICATIONS: The patient is a 51-year-old female who presented to the ED with complaints of laceration of the right little finger. The patient states she was slicing vegetables on a mandolin table slicer and accidentally lacerated the right little finger. The patient complains of inability to extend the right little finger. On examination she had open wound over the dorsal aspect of the DIP joint with a flap of skin and drooping of the distal interphalangeal joint with no active extension of the DIP joint. X-rays showed flexion deformity of the DIP joint with no evidence of fracture. The patient was consented for exploration, repair of extensor tendon, right little finger. The patient was explained the risk and benefits of the procedure. DESCRIPTION OF PROCEDURE: The patient was brought to the operating room under general anesthesia. The right upper extremity was thoroughly prepped and draped. Limb was exsanguinated using Esmarch tourniquet. Tourniquet was raised to 250 mmHg. Intraoperative findings included a flap of skin over the dorsal aspect of the little finger and this flap of skin was ulnar based. There was evidence of a segment of the extensor tendon measuring about a millimeter attached to this flap of skin. The DIP joint was exposed. There was complete laceration of the extensor tendon over the DIP joint. Incision was then extended proximally. Soft tissue dissection was carried out exposing the proximal segment. There was a sliver of segment attached to the distal phalanx base. Thorough wash of the wound was carried out using normal saline with irrigant. About a liter of solution was used. The DIP joint was then pinned using 0.035 K-wire in a retrograde fashion from the tip of the distal phalanx across the DIP joint into the middle phalanx. The C-arm was used to confirm the pin placement and the DIP joint was pinned in slight hyperextension as a millimeter of segment was attached to the flap. The extensor tendon was then approximated using 5-0 Prolene in a continuous fashion. I was able to approximate the extensor tendon bringing the two edges together. Thorough wash was given. Tourniquet is deflated. Total tourniquet time was 40 minutes. The flap of skin was then reapproximated using 6-0 Prolene in a horizontal mattress interrupted fashion. She had good distal circulation at the end of the procedure. The K-wire was cut and protected with Merary balls. Xeroform bacitracin dressing applied. A digital block was carried out using 2% lidocaine plain. Bulky hand dressing was applied which was held in place by a finger splint. The patient was recovered and sent to recovery in stable condition. She will follow up in 2-3 days for dressing and a splint change. Florentin Ventura MD SE/SHRADDHA /6:32 PM /11:04 PM
== END | disposition home or self-care (01) ==
LOC: PHEFT 12:40
DX: S56.427A Laceration of extensor muscle, fascia and tendon of right little finger at forearm level, initial encounter (principal); S61.206A Unspecified open wound of right little finger without damage to nail, initial encounter; F41.8 Other specified anxiety disorders; K21.9 Gastro-esophageal reflux disease without esophagitis; M19.90 Unspecified osteoarthritis, unspecified site; W26.8XXA Contact with other sharp object(s), not elsewhere classified, initial encounter; Y93.G3 Activity, cooking and baking; Y92.000 Kitchen of unspecified non-institutional (private) residence as the place of occurrence of the external cause; Z90.49 Acquired absence of other specified parts of digestive tract; Z23 Encounter for immunization
CPT/HCPCS: 00400; 26418; 73140; 76000; 80048; 85025; 85610; 85730; 90471; 90714; 93005; 96360; 96361; 99284; J0690; J1100; J1885; J2175; J2250; J2405; J3010; J7120

== ENCOUNTER → 2017-11-05 | Outpatient (CLI) | DX: F41.9 Anxiety disorder, unspecified (principal); M50.30 Other cervical disc degeneration, unspecified cervical region; N95.1 Menopausal and female climacteric states; E78.5 Hyperlipidemia, unspecified; L28.0 Lichen simplex chronicus; Z68.32 Body mass index [BMI] 32.0-32.9, adult; M77.12 Lateral epicondylitis, left elbow ==